=== PATIENT | male | born 2000 | race Caucasian/White ===

== ENCOUNTER 2024-08-14 11:56 | Emergency (ER) | payer OTHER, SELFPAY ==
[2024-08-14 12:27] VITALS: BP 136/86; PULSE 85; RESP 18; TEMP 36.2; O2SAT 99
--- NOTE | 2024-08-14 12:48 | ED.EYEPROB ---
HPI - Eye Problem General Chief complaint: Eye Problems Stated complaint: r upper lid red,swollen Time Seen by Provider: 08/14/24 12:48 Source: patient Mode of arrival: ambulatory Limitations: no limitations History of Present Illness HPI Narrative: 24 yo M presents with stye to R upper eyelid for 4 days. Has been doing warm compress massage with no improvement. C/o worsenign redness and pain. All systems reviewed and negative except as noted above. Related Data Allergies Allergy/AdvReac Type Severity Reaction Status Date / Time No Known Allergies Allergy Verified 08/14/24 12:00 Review of Systems Review of Systems: CONSTITUTIONAL: Denies fever, chills, or sweats. EYES: Denies visual changes, redness, or discharge. reports upper eyelid redness, swelling, stye ENT: Denies rhinorrhea, congestion, sore throat, or otalgia. CARDIOVASCULAR: Denies chest pain, palpitations, or edema. RESPIRATORY: Denies cough or dyspnea. GASTROINTESTINAL: Denies abdominal pain, nausea, vomiting, or diarrhea. GENITOURINARY: Denies dysuria or hematuria. SKIN: Denies rash or itching. MUSCULOSKELETAL: Denies back pain, joint pain, or myalgia. NEUROLOGIC: Denies headache, numbness, or weakness. PSYCHIATRIC: Denies anxiety or depression. All other systems reviewed are negative, except as documented in HPI. PMFSH Comments At time of signature, agree with nursing past medical, surgical, social and family history. There is no relevant family history pertinent to the presenting complaint. Exam Narrative: GENERAL: This is a well-nourished, well-developed patient, in no apparent distress. HEAD: normocephalic, atraumatic. EYES: PERRL. Sclera clear/white. Vision is grossly intact. internal erythematous pustule R upper eyelid EARS: External ears normal NOSE: External nose normal NECK: Neck supple, non-tender without lymphadenopathy, masses or thyromegaly. CARDIOVASCULAR: Regular rate and rhythm without murmurs, gallops, or rubs. RESPIRATORY: Clear to auscultation. Breath sounds equal bilaterally. No wheezes, rales, or rhonchi. SKIN: warm, Dry, intact with no suspicious lesions or rash, good texture and turgor. NEURO: awake, alert, and oriented to person, place and time. There were no obvious focal neurologic abnormalities. EXTREMITIES: No joint tenderness, effusion, or edema noted. Course Course Level of Care: Express Care Visit Vital Signs Vital signs: Vital Signs Temperature 36.2 C L 08/14/24 12:27 Pulse Rate 85 08/14/24 12:27 Respiratory Rate 85 H 08/14/24 12:27 Blood Pressure 136/86 08/14/24 12:27 Pulse Oximetry 99 08/14/24 12:27 Oxygen Delivery Room Air 08/14/24 12:27 Temperature 36.2 C L 08/14/24 12:27 Pulse Rate 85 08/14/24 12:27 Respiratory Rate 85 H 08/14/24 12:27 Blood Pressure 136/86 08/14/24 12:27 Pulse Oximetry 99 08/14/24 12:27 Oxygen Delivery Room Air 08/14/24 12:27 Reviewed MDM - Eye Problem MDM Narrative Medical decision making narrative: Patient is aware of diagnosis, understands and agrees to treatment plan. Anticipatory guidance given. Patient agrees to follow-up as directed and is aware of reasons to seek care at the emergency department. Portions of this record may have been created with voice recognition software Discharge Plan Discharge Clinical Impression: Hordeolum internum of right upper eyelid Patient Disposition: Home, Self-Care Condition: Stable Instructions: Antibiotic Form, Erythromycin (Into the eye), Paulina (ED) Additional Instructions: Place antibiotic ointment as prescribed. Read over discharge instructions on how to play erythromycin ointment. Wash hands before and after placing ointment. See your doctor if symptoms not improving. Prescriptions: New erythromycin 5 mg/gram (0.5 %) ointment 1 applic RIGHT EYE QID 10 Days Qty: 3.5 0RF Follow-up/Referrals: PHYSICIAN,SENIOR [employer] DAT[employer] DEVELOPER [Primary Care Provider] - Time of Dis
== END 2024-08-14 12:55 | disposition home or self-care (01) ==
PROVIDERS: Emergency Provider Nurse Practitioner Family
DX: H00.021 Hordeolum internum right upper eyelid (principal)
CPT/HCPCS: 99203; G0463